=== PATIENT | male | born 1995 | race Hispanic/Latino ===

== ENCOUNTER 2020-08-30 17:31 | Emergency (ER) | payer OTHER | END 2020-08-30 18:12 | disposition home or self-care (01) | LOC: EDH 17:31 | DX: L73.9 Follicular disorder, unspecified (principal) ==

== ENCOUNTER 2021-03-19 22:41 | Emergency (ER) | payer OTHER ==
[2021-03-20] MEDS ORDERED: SODIUM CHLORIDE 0.9% 1000ML 1,000 ML IV ONE (00:57)
[2021-03-20] MEDS ORDERED: METOCLOPRAMIDE 10 MG/2 ML VIAL ONE (00:58)
[2021-03-20] MEDS ORDERED: DiphenhydrAMINE HCL 50 MG/ML VIAL ONE (00:59)
[2021-03-20] MEDS ORDERED: KETOROLAC TROMETHAMINE 30MG/ML ONE (00:59)
[2021-03-20] MEDS ORDERED: ONDANSETRON HCL 4 MG/2 ML VIAL ONE (00:59)
[2021-03-20 01:03] LABS: BASOPHILS % (AUTO) 0.3 % (0.0-5.0); EOSINOPHILS % (AUTO) 1.3 % (0.0-8.0); HEMATOCRIT 45.4 % (42-54); LYMPHOCYTES % (AUTO) 29.5 % (21.0-51.0); MEAN CORPUSCULAR HEMOGLOBIN 32.7 pg (27.0-33.0); MEAN CORPUSCULAR HGB CONC 35.7 g/dL (32.0-36.0); MEAN CORPUSCULAR VOLUME 91.7 fL (79-99); NEUTROPHILS % (AUTO) 61.8 % (40.0-77.0); PLATELET COUNT (AUTO) 268 K/uL (130-400); RED BLOOD CELL COUNT(AUTO) 4.95 MIL/uL (4.50-6.20); RED CELL DISTRIBUTION WIDTH 12.6 % (11.0-15.5); WHITE BLOOD COUNT (AUTO) 8.8 K/uL (4.8-10.8)
[2021-03-20 01:11] LABS: CREATININE 1.3 mg/dL (0.5-1.5); POTASSIUM 4.2 mmol/L (3.5-5.1)
[2021-03-20 01:15] LABS: ALBUMIN 4.1 g/dL (3.5-5.0); BILIRUBIN,TOTAL 0.6 mg/dL (0.2-1.0)
[2021-03-20 01:28] LABS: APPEARANCE,URINE Clear (CLEAR); BILIRUBIN,URINE Negative (NEGATIVE); COLOR,URINE Yellow (YELLOW); GLUCOSE, URINE (UA) Negative (NEGATIVE); KETONES,URINE Negative (NEGATIVE); LEUKOCYTE ESTERASE ,URINE Negative (NEGATIVE); NITRATE,URINE Negative (NEGATIVE); OCCULT BLOOD,URINE Negative (NEGATIVE); PH,URINE 6.5 (5.0-8.0); PROTEIN,URINE Negative (NEGATIVE)
== END 2021-03-20 01:45 | disposition home or self-care (01) ==
LOC: EDH 22:41
DX: E86.0 Dehydration (principal); R11.10 Vomiting, unspecified; R19.7 Diarrhea, unspecified; Z20.822 Contact with and (suspected) exposure to COVID-19
CPT/HCPCS: 36415; 71045; 80053; 81003; 83690; 85025; 87426; 87804 ×2; 96361; 96374; 96375; 99284; J1200; J1885; J2405; J2765; J7030

== ENCOUNTER 2021-05-05 02:46 | Emergency (ER) | payer OTHER, SELFPAY ==
[~2021-05-05] VITALS: Ht 154.9 cm; Wt 99.3 kg
[2021-05-05 03:34] VITALS: BP 144/81
[2021-05-05 03:35] VITALS: BP 144/81
[2021-05-05 03:45] LABS: BASOPHILS % (AUTO) 0.4 % (0.0-5.0); EOSINOPHILS % (AUTO) 0.7 % (0.0-8.0); HEMATOCRIT 45.1 % (42-54); LYMPHOCYTES % (AUTO) 11.9 % (21.0-51.0); MEAN CORPUSCULAR HEMOGLOBIN 32.2 pg (27.0-33.0); MEAN CORPUSCULAR HGB CONC 34.8 g/dL (32.0-36.0); MEAN CORPUSCULAR VOLUME 92.4 fL (79-99); NEUTROPHILS % (AUTO) 80.7 % (40.0-77.0); PLATELET COUNT (AUTO) 205 K/uL (130-400); RED BLOOD CELL COUNT(AUTO) 4.88 MIL/uL (4.50-6.20); RED CELL DISTRIBUTION WIDTH 12.5 % (11.0-15.5); WHITE BLOOD COUNT (AUTO) 7.6 K/uL (4.8-10.8)
[2021-05-05] MEDS ORDERED: SODIUM CHLORIDE 0.9% 1000ML 1,000 ML IV ONE (03:45)
[2021-05-05 03:56] LABS: CREATININE 1.3 mg/dL (0.5-1.5); POTASSIUM 3.6 mmol/L (3.5-5.1)
[2021-05-05 04:02] LABS: ALBUMIN 3.9 g/dL (3.5-5.0); BILIRUBIN,TOTAL 0.7 mg/dL (0.2-1.0); TOTAL PROTEIN, SERUM 7.7 g/dL (6.0-8.3)
[2021-05-05 05:13] VITALS: BP 126/78
== END 2021-05-05 05:22 | disposition home or self-care (01) ==
LOC: EDH 03:42
DX: E86.9 Volume depletion, unspecified (principal); R50.9 Fever, unspecified; T50.B95A Adverse effect of other viral vaccines, initial encounter; Z87.891 Personal history of nicotine dependence; Y92.89 Other specified places as the place of occurrence of the external cause
CPT/HCPCS: 36415; 80053; 85025

== ENCOUNTER 2024-01-31 04:27 | Emergency (ER) | payer OTHER ==
[~2024-01-31] VITALS: Ht 162.6 cm; Wt 106.6 kg
[2024-01-31] MEDS: DIAZEPAM 5 MG/ML 2 ML SYG ONE (05:17)
[2024-01-31] MEDS: MORPHINE 4 MG SYG ONE (05:17)
[2024-01-31] MEDS: 0.9%NACL 1000ML 1,000 ML IV SCH (05:17)
[2024-01-31] MEDS: MORPHINE 4 MG SYG IVP ONE (05:17)
[2024-01-31] MEDS: DIAZEPAM 5 MG/ML 2 ML SYG IVP ONE (05:17)
[2024-01-31] MEDS: PROPOFOL 10 MG/ML 20ML VIAL IV SCH (05:31)
[2024-01-31 05:58] VITALS: BP 122/80; PULSE 98; RESP 16; O2SAT 98
== END 2024-01-31 06:29 | disposition home or self-care (01) ==
LOC: EDH 04:27
DX: S43.084A Other dislocation of right shoulder joint, initial encounter (principal); F17.200 Nicotine dependence, unspecified, uncomplicated; W01.0XXA Fall on same level from slipping, tripping and stumbling without subsequent striking against object, initial encounter; Y93.89 Activity, other specified; Y92.89 Other specified places as the place of occurrence of the external cause; Y99.8 Other external cause status
CPT/HCPCS: 99285; 23650; 96374; 96361; 96375; 73030 ×2; J7030; J3360; J2704; J2270; J3490